=== PATIENT | female | born 1955 | race Caucasian/White ===

== ENCOUNTER 2017-09-04 20:33 | Emergency (ER) | payer BC ==
[2017-09-04] MEDS ORDERED: Diazepam 5 MG TAB ONE (20:56)
[2017-09-04] MEDS ORDERED: HYDROcodone/Acetaminophen 5/325 mg Tablet ONE (20:56)
[2017-09-04] MEDS ORDERED: Dexamethasone 4 MG TAB ONE (20:56)
[2017-09-04] MEDS ORDERED: Naproxen 500 MG TAB ONE (20:56)
== END 2017-09-04 21:07 | disposition home or self-care (01) ==
LOC: SCSER 20:33
DX: M62.830 Muscle spasm of back (principal); M06.9 Rheumatoid arthritis, unspecified; I10 Essential (primary) hypertension; F32.9 Major depressive disorder, single episode, unspecified
CPT/HCPCS: 99283; J8540

== ENCOUNTER 2018-06-13 11:30 | Outpatient (CLI) | payer OTHER, SELFPAY ==
--- NOTE | 2018-06-13 12:04 | MMO ---
Bilateral MAMMO Bilat Screen [facility]. CLINICAL HISTORY: Patient is 62 years old and is seen for screening. The patient has the following family history of breast cancer: sister, at age 59. The patient has no personal history of cancer. VIEWS: The views performed were: bilateral craniocaudal with tomosynthesis and bilateral mediolateral oblique with tomosynthesis. FILMS COMPARED: The present examination has been compared to prior imaging studies performed at [facility] on 04/17/2014 and 12/17/2015. MAMMOGRAM FINDINGS: There are scattered fibroglandular densities. There are no suspicious masses, suspicious calcifications, or new areas of architectural distortion. IMPRESSION: THERE IS NO MAMMOGRAPHIC EVIDENCE OF MALIGNANCY. A ROUTINE FOLLOW-UP MAMMOGRAM IN 1 YEAR IS RECOMMENDED. THE RESULTS OF THIS EXAM WERE SENT TO THE PATIENT. ACR BI-RADS Category 1 - Negative MAMMOGRAPHY NOTE: 1. A negative mammogram report should not delay a biopsy if a dominant of clinically suspicious mass is present. 2. Approximately 10% to 15% of breast cancers are not detected by mammography. 3. Adenosis and dense breasts may obscure an underlying neoplasm.
== END 2018-06-13 11:31 | disposition home or self-care (01) ==
LOC: BICMAMMO 11:30
PROVIDERS: ATTEND Family Medicine
DX: Z12.31 Encounter for screening mammogram for malignant neoplasm of breast (principal); Z80.3 Family history of malignant neoplasm of breast
CPT/HCPCS: 77063; 77067

== ENCOUNTER 2020-06-23 12:09 | Outpatient (CLI) | payer BC | END 2020-06-23 12:10 | disposition home or self-care (01) | LOC: BICMAMMO 12:09 | PROVIDERS: ATTEND Family Medicine | DX: Z12.31 Encounter for screening mammogram for malignant neoplasm of breast (principal); Z80.3 Family history of malignant neoplasm of breast | CPT/HCPCS: 77063; 77067 ==

== ENCOUNTER 2020-06-26 12:28 | Outpatient (CLI) | payer BC | END 2020-06-26 12:29 | disposition home or self-care (01) | LOC: ULT 12:28 | PROVIDERS: ATTEND Family Medicine | DX: R07.9 Chest pain, unspecified (principal); R06.02 Shortness of breath; M20.022 Boutonniere deformity of left finger(s); I08.1 Rheumatic disorders of both mitral and tricuspid valves | CPT/HCPCS: 93306 ==

== ENCOUNTER 2020-07-09 07:40 | Outpatient (CLI) | payer BC ==
[2020-07-09] MEDS ORDERED: ADENOSINE 60 MG/20 ML VIAL ONE (08:48)
== END 2020-07-09 07:41 | disposition home or self-care (01) ==
LOC: NM 07:40
PROVIDERS: ATTEND Family Medicine
DX: R07.9 Chest pain, unspecified (principal); R06.02 Shortness of breath
CPT/HCPCS: 78452; 93017; A9500; J0153

== ENCOUNTER 2021-08-25 07:30 | Outpatient (CLI) | payer BC ==
[2021-08-25] MEDS ORDERED: Iopamidol-370 76% 500 ML 1 ML ONE (13:05)
== END 2021-08-25 07:31 | disposition home or self-care (01) ==
LOC: BICCT 07:30
PROVIDERS: ATTEND Physician Assistant Medical
DX: R10.9 Unspecified abdominal pain (principal); M79.10 Myalgia, unspecified site; R53.82 Chronic fatigue, unspecified; R63.4 Abnormal weight loss; K76.0 Fatty (change of) liver, not elsewhere classified
CPT/HCPCS: 74177; 82565; Q9967

== ENCOUNTER 2021-10-12 14:23 | Outpatient (CLI) | payer BC | END 2021-10-12 14:24 | disposition home or self-care (01) | LOC: BICMAMMO 14:23 | PROVIDERS: ATTEND Family Medicine | DX: Z12.31 Encounter for screening mammogram for malignant neoplasm of breast (principal); Z80.3 Family history of malignant neoplasm of breast | CPT/HCPCS: 77063; 77067 ==

== ENCOUNTER 2023-07-22 09:16 | Outpatient (CLI) | payer BC | END 2023-07-22 09:17 | disposition home or self-care (01) | LOC: SCSRAD 09:16 | PROVIDERS: ATTEND Family Medicine | DX: M25.551 Pain in right hip (principal) ==